=== PATIENT | male | born 1975 | race Caucasian/White ===

== ENCOUNTER 2017-02-20 14:00 | Emergency (ER) | payer SELFPAY ==
[~2017-02-20] VITALS: Ht 182.9 cm; Wt 87.2 kg
[2017-02-20 14:00] VITALS: BP 119/76
== END 2017-02-20 14:57 | disposition home or self-care (01) ==
LOC: ED 14:21
DX: L02.01 Cutaneous abscess of face (principal)
CPT/HCPCS: 10060